=== PATIENT | male | born 1980 | race Caucasian/White ===

== ENCOUNTER 2018-07-22 22:56 | Emergency (ER) | payer OTHER ==
--- NOTE | 2018-07-22 23:23 | RAD ---
RIGHT ANKLE THREE VIEWS: 07/22/18 Three views. HISTORY: Fall with injury to ankle. Minimal soft tissue swelling. No evidence of fracture. IMPRESSION: No evidence of fracture. POS: [facility]
== END 2018-07-22 23:56 | disposition home or self-care (01) ==
LOC: ERS 22:56
DX: S93.401A Sprain of unspecified ligament of right ankle, initial encounter (principal); F32.9 Major depressive disorder, single episode, unspecified; W17.89XA Other fall from one level to another, initial encounter